=== PATIENT | male | born 1965 | race Asian ===

== ENCOUNTER 2016-08-05 23:19 | Emergency (ER) | payer BC ==
[~2016-08-05] VITALS: Ht 180.3 cm; Wt 108.0 kg
[~2016-08-05 23:19] MED LIST: SSD1C20 TOP
[2016-08-05 23:37] VITALS: Ht 180.3 cm; Wt 108.0 kg
--- NOTE | 2016-08-06 00:11 | ERD ---
ER Documentation Chief Complaint Date/Time DATE: 08/06/16 TIME: 00:08 Chief Complaint COUGH FOR FEW DAYS; NOW RADIATING TO LEFT CHEST AND BODY ACHES. HPI This is a 51-year-old male who presents emergency department for cough 3 days. Patient states cough is dry nonproductive. However with coughing patient has pain to localized area of left chest. No pain with palpation. Pain is only felt during cough. No wheezing, shortness of breath or difficulty breathing. No chest pain or chest pressure at rest. No rhinitis or rhinorrhea. Patient has history of asthma and has been using his Advair inhaler without relief. Patient ran out of his prescription for pro-air inhaler. No fevers or chills. Patient has been taking Tylenol, Motrin and Mucinex. No nausea, vomiting or diarrhea. Denies abdominal pain. ROS All systems reviewed and are negative except as per history of present illness. Medications Home Meds Active Scripts Guaifenesin/Codeine Phosphate (CHERATUSSIN AC SYRUP) 118 Ml Liquid, 10 ML PO Q6H Y for COUGH, #118 ML Prov:MARGARITA SAHNI NP 08/06/16 Albuterol Sulfate* (Proair HFA*) 8.5 Gm Hfa.aer.ad, 2 PUFF INH Q4, #1 INHALER Prov:MARGARITA SAHNI NP 08/06/16 Silver Sulfadiazine (THERMAZENE 1% 25 GM) 1 Applic Cr, 1 APPLIC TOP BID, #1 TUB Prov:KRISSY GARCIA NP 11/11/15 Allergies Allergies: Coded Allergies: No Known Drug Allergies (Verified Allergy, Unknown, 11/11/15) PMhx/Soc Medical and Surgical Hx: pt denies Surgical Hx History of Surgery: No Anesthesia Reaction: No Hx Neurological Disorder: No Hx Respiratory Disorders: Yes (ASTHMA) Hx Cardiac Disorders: No Hx Psychiatric Problems: No Hx Miscellaneous Medical Probl: No Hx Alcohol Use: No Hx Substance Use: No Hx Tobacco Use: No Smoking Status: Never smoker Physical Exam Vitals Vital Signs Date Time Temp Pulse Resp B/P Pulse Ox O2 Delivery O2 Flow Rate FiO2 08/05/16 23:37 98.9 80 20 133/87 100 Physical Exam Const: Alert, no acute distress Head: Atraumatic Eyes: Normal Conjunctiva ENT: Normal External Ears, Nose and Mouth. No erythema or exudate to posterior pharynx. TMs normal bilaterally. Neck: Full range of motion..~ No meningismus. Resp: Clear to auscultation bilaterally. No wheezing, rhonchi or crackles. Cardio: Regular rate and rhythm, no murmurs Abd: Soft, non tender, non distended. Normal bowel sounds Skin: No petechiae or rashes Back: No midline or flank tenderness Ext: No cyanosis, or edema Neur: Awake and alert Psych: Normal Mood and Affect Procedures/MDM ED COURSE: The patient was stable throughout ED course. I kept the patient and/or family informed of laboratory and diagnostic imaging results throughout the ED course. Imaging Chest x-ray Patient: CORWIN ALVARENGA : 1965 Age: 51 Sex: M MR #: [id number] DOS: 08/05/16 2350 Ordering MD: MARGARITA SAHNI NP Location: [facility] Room/Bed: PROCEDURE: XR Chest. CLINICAL INDICATION: Chest pain with cough. TECHNIQUE: Single frontal view of the chest was obtained COMPARISON: None FINDINGS: Mild cardiomegaly. Mild right lung base atelectasis. Left lung is clear. There is no pleural effusion or pneumothorax. IMPRESSION: Mild cardiomegaly and mild right lung base atelectasis. MDM: 51-year-old male presents emergency department for cough and chest pain with cough 3 days. No fevers or chills. No signs or symptoms of respiratory distress. Oxygen saturation 100% on room air. Patient is talking in complete sentences. No wheezing. Chest x-ray reviewed by radiologist as mild cardiomegaly and mild right lung base atelectasis. Patient remains calm and comfortable throughout ED visit. Low suspicion for pneumonia, pleural effusion, pneumothorax or pulmonary embolism. Patient likely has URI, viral. Patient is appropriate for outpatient management will be discharged with prescription for pro-air inhaler and Cheratussin AC syrup. Instructed patient to follow-up with primary care provider in the next 1-2 days for reassessment. Return to ED for any high fever, chest pain, difficulty breathing, shortness breath, wheezing, vomiting, diarrhea, abdominal pain or any new or worsening symptoms. Patient verbalizes understanding. All questions answered at discharge. Departure Diagnosis: Primary Impression: URI (upper respiratory infection) URI type: unspecified viral URI Qualified Code: J06.9 - Viral upper respiratory tract infection Condition: MARGARITA Kamara NP Aug 06, 2016 00:11
--- NOTE | 2016-08-06 00:44 | RADRPT ---
PROCEDURE: XR Chest. CLINICAL INDICATION: Chest pain with cough. TECHNIQUE: Single frontal view of the chest was obtained COMPARISON: None FINDINGS: Mild cardiomegaly. Mild right lung base atelectasis. Left lung is clear. There is no pleural effusion or pneumothorax. IMPRESSION: Mild cardiomegaly and mild right lung base atelectasis. RPTAT: [facility] Physician Lenny Date Time Electronically viewed and signed by Physician Lenny on 08/06/2016 00:44 RS/
[2016-08-06] MEDS ORDERED: ALBU8.5H3 INH (00:52)
[2016-08-06] MEDS ORDERED: GUAI118L22 PO (00:53)
[2016-08-06 02:16] VITALS: BP 129/80; PULSE 87; RESP 18; TEMP 98.3
== END 2016-08-06 02:17 | disposition home or self-care (01) ==
LOC: E/R 23:19 → FTE 08-06 02:17
DX: J06.9 Acute upper respiratory infection, unspecified (principal); J45.909 Unspecified asthma, uncomplicated
CPT/HCPCS: 71010; Z7502